=== PATIENT | female | born 1940 | race Caucasian/White ===

== ENCOUNTER 2024-03-16 11:27 | Emergency (ER) | payer MEDICARE, OTHER | END 2024-03-16 13:44 | disposition home or self-care (01) | LOC: MW.ED 11:27 | DX: S82.91XA Unspecified fracture of right lower leg, initial encounter for closed fracture (principal); Z75.8 Other problems related to medical facilities and other health care; X50.1XXA Overexertion from prolonged static or awkward postures, initial encounter | CPT/HCPCS: 73610-26-RT; 73610-RT; 99282; 99283 ==

== ENCOUNTER 2024-09-13 10:14 | Emergency (ER) | payer MEDICARE, OTHER | END 2024-09-13 13:03 | disposition home or self-care (01) | LOC: MW.ED 10:14 | DX: B02.9 Zoster without complications (principal); I10 Essential (primary) hypertension; E78.00 Pure hypercholesterolemia, unspecified; K21.9 Gastro-esophageal reflux disease without esophagitis; M19.90 Unspecified osteoarthritis, unspecified site; E11.9 Type 2 diabetes mellitus without complications; Z90.49 Acquired absence of other specified parts of digestive tract; Z90.710 Acquired absence of both cervix and uterus; Z91.018 Allergy to other foods; Z91.048 Other nonmedicinal substance allergy status; Z79.82 Long term (current) use of aspirin; Z79.84 Long term (current) use of oral hypoglycemic drugs; Z79.899 Other long term (current) drug therapy; Z75.8 Other problems related to medical facilities and other health care | CPT/HCPCS: 99283 ==

== ENCOUNTER 2024-09-21 18:32 | Emergency (ER) | payer MEDICARE, OTHER | END 2024-09-21 21:13 | disposition home or self-care (01) | LOC: MW.ED 18:32 | DX: R41.9 Unspecified symptoms and signs involving cognitive functions and awareness (principal); T42.6X5A Adverse effect of other antiepileptic and sedative-hypnotic drugs, initial encounter; I10 Essential (primary) hypertension; E78.00 Pure hypercholesterolemia, unspecified; K21.9 Gastro-esophageal reflux disease without esophagitis; M19.90 Unspecified osteoarthritis, unspecified site; E11.9 Type 2 diabetes mellitus without complications; Z90.49 Acquired absence of other specified parts of digestive tract; Z90.710 Acquired absence of both cervix and uterus; Z91.048 Other nonmedicinal substance allergy status; Z91.018 Allergy to other foods; Z79.82 Long term (current) use of aspirin; Z79.84 Long term (current) use of oral hypoglycemic drugs; Z79.899 Other long term (current) drug therapy; W18.30XA Fall on same level, unspecified, initial encounter | CPT/HCPCS: 99282; 99283 ==